=== PATIENT | male | born 1990 | race Hispanic/Latino ===

== ENCOUNTER 2018-09-14 16:15 | Emergency (ER) | payer OTHER ==
[~2018-09-14] VITALS: Ht 167.6 cm; Wt 97.3 kg
[2018-09-14] MEDS ORDERED: TORADOL PO (18:31)
[2018-09-14 18:35] VITALS: BP 131/81
== END 2018-09-14 18:35 | disposition home or self-care (01) | DRG 563 ==
LOC: ED 16:15
DX: S63.501A Unspecified sprain of right wrist, initial encounter (principal); S60.511A Abrasion of right hand, initial encounter; R22.31 Localized swelling, mass and lump, right upper limb; W01.0XXA Fall on same level from slipping, tripping and stumbling without subsequent striking against object, initial encounter; Y92.009 Unspecified place in unspecified non-institutional (private) residence as the place of occurrence of the external cause

== ENCOUNTER 2019-12-01 10:36 | Emergency (ER) | payer BC ==
[~2019-12-01 10:36] MED LIST: TORADOL PO
[2019-12-01] MEDS ORDERED: PENICILLN VK500 M1 PO (12:23)
[2019-12-01 12:26] VITALS: BP 146/75
== END 2019-12-01 12:39 | disposition home or self-care (01) | DRG 153 ==
LOC: ED 10:36
DX: J02.0 Streptococcal pharyngitis (principal); Z20.828 Contact with and (suspected) exposure to other viral communicable diseases

== ENCOUNTER 2019-12-24 09:45 | Emergency (ER) | payer BC ==
[~2019-12-24] VITALS: Ht 167.6 cm; Wt 90.0 kg
[~2019-12-24 09:45] MED LIST changes: +PENICILLN VK500 M1 PO
[2019-12-24 10:59] LABS: HEMATOCRIT 45.5 % (39.0-50.0); HEMOGLOBIN 15.6 g/dl (14.0-18.0); IMMATURE GRANULOCYTES 0.6 % (0.0-5.0); MEAN CELL VOLUME 82.7 fL CALC (80.0-100.0); MEAN CORPUSCULAR HGB 28.4 pG CALC (26.0-32.0); MEAN CORPUSCULAR HGB CONC 34.3 g/dL CAL (32.0-36.0); NEUT# 7.03 thou/uL (1.82-7.42); RED BLOOD COUNT 5.5 mill/uL (4.70-6.10); RED CELL DISTRI WIDTH 12.4 % (11.5-15.5)
[2019-12-24 11:15] LABS: ALBUMIN 4.4 g/dL (3.2-5.0); ALKALINE PHOSPHATASE 92 u/l (38-126); ANION GAP 12 (6-22 (CALC)); BILIRUBIN, TOTAL 0.7 mg/dL (0.0-1.4); BUN 12 mg/dL (9-20); BUN/CREATININE RATIO 16 (12-20 (CALC)); CARBON DIOXIDE 26 mmol/l (22-30); CHLORIDE 102 mmol/l (95-108); CREATININE 0.7 mg/dL (0.7-1.3); GFR > 60 ML/MIN (>=60 (CALC)); GFR FOR AFR.AMER. > 60 ML/MIN (>=60 (CALC)); POTASSIUM 3.9 mmol/l (3.5-5.1); SGOT/AST 35 u/l (17-59); SODIUM 137 mmol/l (137-146); TOTAL PROTEIN 7.5 g/dL (6.3-8.2)
[2019-12-24 11:50] VITALS: BP 129/79
== END 2019-12-24 11:50 | disposition home or self-care (01) | DRG 918 ==
LOC: ED 09:45
PROVIDERS: Family Medicine
DX: T65.93XA Toxic effect of unspecified substance, assault, initial encounter (principal); H57.13 Ocular pain, bilateral; F17.210 Nicotine dependence, cigarettes, uncomplicated; Y08.89XA Assault by other specified means, initial encounter; Y92.009 Unspecified place in unspecified non-institutional (private) residence as the place of occurrence of the external cause

== ENCOUNTER 2019-12-26 18:28 | Emergency (ER) | payer BC ==
[~2019-12-26] VITALS: Ht 167.6 cm; Wt 104.5 kg
[2019-12-26 20:21] LABS: URINE BILIRUBIN - DIPSTICK NEGATIVE (NEGATIVE); URINE BLOOD DIPSTICK NEGATIVE (NEGATIVE); URINE COLOR YELLOW; URINE GLUCOSE - DIPSTICK NEGATIVE (NEGATIVE); URINE KETONE NEGATIVE (NEGATIVE); URINE LEUK ESTERASE NEGATIVE (NEGATIVE); URINE NITRITE - DIPSTICK NEGATIVE (Negative); URINE PROTEIN - DIPSTICK NEGATIVE (NEG-TRACE); URINE UROBILINOGEN - DIPSTICK 0.2 E.U./dL (0.2)
[2019-12-26 20:25] LABS: HEMATOCRIT 42.5 % (39.0-50.0); HEMOGLOBIN 14.4 g/dl (14.0-18.0); IMMATURE GRANULOCYTES 1.1 % (0.0-5.0); MEAN CORPUSCULAR HGB 28.5 pG CALC (26.0-32.0); MEAN CORPUSCULAR HGB CONC 33.9 g/dL CAL (32.0-36.0); NEUT# 6.65 thou/uL (1.82-7.42); RED BLOOD COUNT 5.06 mill/uL (4.70-6.10); RED CELL DISTRI WIDTH 12.7 % (11.5-15.5)
[2019-12-26 20:35] LABS: AMYLASE 47 u/l (30-110); LIPASE 36 u/l (23-300)
[2019-12-26 20:37] LABS: ALBUMIN 4.3 g/dL (3.2-5.0); ALKALINE PHOSPHATASE 87 u/l (38-126); ANION GAP 12 (6-22 (CALC)); BILIRUBIN, TOTAL 0.5 mg/dL (0.0-1.4); BUN 9 mg/dL (9-20); BUN/CREATININE RATIO 12 (12-20 (CALC)); CARBON DIOXIDE 25 mmol/l (22-30); CHLORIDE 103 mmol/l (95-108); CREATININE 0.8 mg/dL (0.7-1.3); GFR > 60 ML/MIN (>=60 (CALC)); GFR FOR AFR.AMER. > 60 ML/MIN (>=60 (CALC)); POTASSIUM 3.7 mmol/l (3.5-5.1); SGOT/AST 33 u/l (17-59); SODIUM 137 mmol/l (137-146); TOTAL PROTEIN 7.6 g/dL (6.3-8.2)
[2019-12-26 21:25] VITALS: BP 131/65
== END 2019-12-26 21:25 | disposition home or self-care (01) | DRG 103 ==
LOC: ED 18:28
PROVIDERS: Emergency Medicine
DX: R51 Headache (principal); R11.0 Nausea

== ENCOUNTER 2019-12-27 11:14 | Emergency (ER) | payer BC ==
[~2019-12-27] VITALS: Ht 167.6 cm; Wt 104.0 kg
[2019-12-27 14:13] VITALS: BP 142/79
--- NOTE | 2019-12-30 10:39 | NUR ---
Notified patient of +Covid results. Patient denies fever or dyspnea. Advised patient to quarantine until contacted by [facility] with further instructions. Advised patient to drink plenty of fluids and to rest. Advised patient to return to ED with difficulty breathing or other urgent needs. Patient verbalized understanding.
== END 2019-12-27 14:13 | disposition home or self-care (01) | DRG 179 ==
LOC: ED 11:14
DX: U07.1 COVID-19 (principal)

== ENCOUNTER 2022-03-20 09:12 | Emergency (ER) | payer SELFPAY ==
[~2022-03-20] VITALS: Ht 167.6 cm; Wt 91.0 kg
[2022-03-20] VITALS (9 sets, daily range): BP systolic 110–179; BP diastolic 55–96
[2022-03-20 09:53] LABS: HEMATOCRIT 44.5 % (39.0-50.0); HEMOGLOBIN 15.2 g/dl (14.0-18.0); IMMATURE GRANULOCYTES 0.7 % (0.0-5.0); MEAN CELL VOLUME 85.7 fL CALC (80.0-100.0); MEAN CORPUSCULAR HGB 29.3 pG CALC (26.0-32.0); MEAN CORPUSCULAR HGB CONC 34.2 g/dL CAL (32.0-36.0); NEUT# 4.71 thou/uL (1.82-7.42); RED BLOOD COUNT 5.19 mill/uL (4.70-6.10); RED CELL DISTRI WIDTH 12.1 % (11.5-15.5)
[2022-03-20 10:07] LABS: ALBUMIN 4.3 g/dL (3.2-5.0); ALKALINE PHOSPHATASE 78 u/l (38-126); ANION GAP 12 (6-22 (CALC)); BILIRUBIN, TOTAL 0.5 mg/dL (0.0-1.4); BUN 15 mg/dL (9-20); BUN/CREATININE RATIO 17 (12-20 (CALC)); CARBON DIOXIDE 30 mmol/l (22-30); CHLORIDE 101 mmol/l (95-108); CREATININE 0.9 mg/dL (0.7-1.3); GFR FOR AFR.AMER. > 60 ML/MIN (>=60 (CALC)); GFR OTHER RACES > 60 ML/MIN (>=60 (CALC)); POTASSIUM 4.3 mmol/l (3.5-5.1); SGOT/AST 38 u/l (17-59); SODIUM 138 mmol/l (137-146); TOTAL PROTEIN 7.2 g/dL (6.3-8.2)
[2022-03-20 10:19] LABS: MYOGLOBIN 51 ng/mL (0 - 121)
[2022-03-20 10:33] LABS: INTERNATIONAL NORMALIZED RATIO 1.1 RATIO (0.7-1.3); PROTHROMBIN TIME 10.6 SECONDS (9.0-12.5)
[2022-03-20 11:10] LABS: D-DIMER 0.17 mg/L (0.19-0.60)
[2022-03-20] MEDS ORDERED: TORADOL PO (11:15)
== END 2022-03-20 11:38 | disposition home or self-care (01) | DRG 313 ==
LOC: ED 09:12
PROVIDERS: Family Medicine
DX: R07.89 Other chest pain (principal)

== ENCOUNTER 2022-08-21 21:33 | Emergency (ER) | payer SELFPAY ==
[~2022-08-21] VITALS: Ht 167.6 cm; Wt 99.0 kg
[2022-08-21 22:34] VITALS: BP 135/86
[2022-08-21 23:00] VITALS: BP 127/65
[2022-08-21 23:17] VITALS: BP 141/73
[2022-08-21 23:30] VITALS: BP 126/65
[2022-08-21 23:42] VITALS: BP 126/65
== END 2022-08-21 23:52 | disposition home or self-care (01) | DRG 563 ==
LOC: ED 21:33
DX: S93.402A Sprain of unspecified ligament of left ankle, initial encounter (principal); X50.9XXA Other and unspecified overexertion or strenuous movements or postures, initial encounter